=== PATIENT | female | born 1955 | race Caucasian/White ===

== ENCOUNTER → 2019-05-21 14:22 | Outpatient (BNVA) | payer BC, SELFPAY | PROVIDERS: Family Provider Nurse Practitioner; PCP Nurse Practitioner; Visit Provider Nurse Practitioner | DX: I10 Essential (primary) hypertension (principal); E78.2 Mixed hyperlipidemia; E11.9 Type 2 diabetes mellitus without complications | CPT/HCPCS: 80053; 80061; 81003; 83036 ==

== ENCOUNTER → 2019-07-09 16:19 | Outpatient (BNVA) | payer BC, SELFPAY | PROVIDERS: Family Provider Nurse Practitioner; PCP Nurse Practitioner; Visit Provider Nurse Practitioner | DX: R35.0 Frequency of micturition (principal); R82.998 Other abnormal findings in urine; N39.0 Urinary tract infection, site not specified | CPT/HCPCS: 81001; 87077; 87086; 87186 ==

== ENCOUNTER 2019-07-24 07:24 | Outpatient (CLI) | payer BC, SELFPAY ==
--- NOTE | 2019-07-24 08:00 | US_ITS ---
WS: [id number] Abdomen ultrasound, 07/24/2019 Clinical Data: Increase Bili level Comparison: None. Findings: The pancreas shows no cyst, pseudocyst or evidence of pancreatitis. The liver shows no cysts, masses or dilated intrahepatic ducts. The liver measures 10.[address] AP diameter. The gallbladder is absent. The common bile duct is 0.4 cm and no intraductal abnormalities are noted. The right kidney is 4.45 x 5.31 x 11.4 cm. No cysts, masses or hydronephrosis is seen. The left kidney is 5.18 x 5.52 x 10.8 cm. No cysts, masses or hydronephrosis is seen. The abdominal aorta is not dilated and the inferior vena cava has normal flow. No vascular abnormalit ies are seen. The spleen measures 9.7 cm and there are no intrasplenic masses are capsular abnormalities. US/US abdomen complete* [id number] Impression: 1. Absent gallbladder. 2. Negative abdomen ultrasound.
== END 2019-07-24 07:25 | disposition home or self-care (01) ==
LOC: US 07:27
PROVIDERS: Family Provider Nurse Practitioner; PCP Nurse Practitioner; Visit Provider Nurse Practitioner
DX: E80.6 Other disorders of bilirubin metabolism (principal)
CPT/HCPCS: 76700

== ENCOUNTER → 2019-07-30 14:57 | Outpatient (BNVA) | payer BC, SELFPAY | PROVIDERS: Family Provider Nurse Practitioner; PCP Nurse Practitioner; Visit Provider Nurse Practitioner | DX: R82.998 Other abnormal findings in urine (principal) | CPT/HCPCS: 81000 ==

== ENCOUNTER → 2019-12-05 16:22 | Outpatient (BNVA) | payer BC, SELFPAY | PROVIDERS: Family Provider Nurse Practitioner; PCP Nurse Practitioner; Visit Provider Nurse Practitioner | DX: E11.65 Type 2 diabetes mellitus with hyperglycemia (principal); E78.2 Mixed hyperlipidemia; R35.0 Frequency of micturition | CPT/HCPCS: 80053; 80061; 81003; 83036; 87077; 87086; 87186 ==

== ENCOUNTER → 2020-01-27 14:51 | Outpatient (BNVA) | payer BC, SELFPAY | PROVIDERS: Family Provider Nurse Practitioner; PCP Nurse Practitioner; Visit Provider Obstetrics & Gynecology | DX: Z12.4 Encounter for screening for malignant neoplasm of cervix (principal) | CPT/HCPCS: 88175 ==

== ENCOUNTER 2020-02-19 15:01 | Outpatient (CLI) | payer BC, SELFPAY ==
--- NOTE | 2020-02-19 15:06 | MM_ITS ---
WS: [id number] BILATERAL DIGITAL SCREENING MAMMOGRAPHY WITH CAD CLINICAL INFORMATION: SCREENING HISTORY: Screening mammogram. No current complaints. COMPARISON: TECHNIQUE: Bilateral CC and MLO views. FINDINGS: Scattered fibroglandular densities bilaterally. No suspicious focal mass, asymmetry, calcifications, or architectural distortion. No evidence of malignancy. MM/[place] [id number] IMPRESSION: BI-RADS: 1-Negative FOLLOW UP: 1 Year Follow-up Recommend return to annual screening mammography.
== END 2020-02-19 15:02 | disposition home or self-care (01) ==
LOC: RADSHAW 15:05
PROVIDERS: PCP Nurse Practitioner; Visit Provider Nurse Practitioner
DX: Z12.31 Encounter for screening mammogram for malignant neoplasm of breast (principal)
CPT/HCPCS: 77067

== ENCOUNTER → 2020-03-10 15:54 | Outpatient (BNVA) | payer BC, SELFPAY | PROVIDERS: PCP Nurse Practitioner; Visit Provider Nurse Practitioner | DX: E11.65 Type 2 diabetes mellitus with hyperglycemia (principal); E78.2 Mixed hyperlipidemia | CPT/HCPCS: 80053; 81000; 83036 ==

== ENCOUNTER → 2020-07-09 15:56 | Outpatient (BNVA) | payer BC, SELFPAY | PROVIDERS: PCP Nurse Practitioner; Visit Provider Nurse Practitioner | DX: E11.65 Type 2 diabetes mellitus with hyperglycemia (principal); E78.2 Mixed hyperlipidemia; I10 Essential (primary) hypertension | CPT/HCPCS: 80053; 80061; 81000; 82043; 83036; 84443 ==

== ENCOUNTER → 2020-11-05 14:30 | Outpatient (BNVA) | payer BC, SELFPAY | PROVIDERS: PCP Nurse Practitioner; Visit Provider Nurse Practitioner | DX: E11.65 Type 2 diabetes mellitus with hyperglycemia (principal); E66.9 Obesity, unspecified; E78.2 Mixed hyperlipidemia; I10 Essential (primary) hypertension | CPT/HCPCS: 80053; 81000; 83036 ==

== ENCOUNTER → 2021-02-09 14:30 | Outpatient (BNVA) | payer BC, SELFPAY | PROVIDERS: PCP Nurse Practitioner; Visit Provider Nurse Practitioner | DX: Z12.11 Encounter for screening for malignant neoplasm of colon (principal); E11.69 Type 2 diabetes mellitus with other specified complication; E66.9 Obesity, unspecified; E11.65 Type 2 diabetes mellitus with hyperglycemia; R39.11 Hesitancy of micturition; E78.2 Mixed hyperlipidemia; I10 Essential (primary) hypertension | CPT/HCPCS: 80053; 80061; 81000; 83036; 84443; 85025 ==

== ENCOUNTER 2021-03-26 13:15 | Outpatient (CLI) | payer BC, SELFPAY ==
--- NOTE | 2021-03-26 13:25 | MM_ITS ---
WS: [id number] BILATERAL DIGITAL SCREENING MAMMOGRAPHY WITH CAD CLINICAL INFORMATION: SCREENING HISTORY: Screening mammogram. No current complaints. COMPARISON: February 19, 2020 TECHNIQUE: Bilateral CC and MLO views. FINDINGS: Scattered fibroglandular densities bilaterally. No suspicious focal mass, asymmetry, calcifications, or architectural distortion. No evidence of malignancy. MM/[place] [id number] IMPRESSION: BI-RADS: 1-Negative FOLLOW UP: 1 Year Follow-up Recommend return to annual screening mammography.
== END 2021-03-26 13:16 | disposition home or self-care (01) ==
LOC: RADSHAW 13:17
PROVIDERS: PCP Nurse Practitioner; Visit Provider Nurse Practitioner
DX: Z12.31 Encounter for screening mammogram for malignant neoplasm of breast (principal)
CPT/HCPCS: 77067

== ENCOUNTER → 2021-05-25 16:15 | Outpatient (BNVA) | payer BC, SELFPAY | PROVIDERS: PCP Nurse Practitioner; Visit Provider Nurse Practitioner | DX: E11.65 Type 2 diabetes mellitus with hyperglycemia (principal); E78.2 Mixed hyperlipidemia | CPT/HCPCS: 80053; 81003; 83036; 87077; 87086; 87184 ==

== ENCOUNTER → 2021-08-25 10:29 | Outpatient (BNVA) | payer BC, SELFPAY | PROVIDERS: PCP Nurse Practitioner; Visit Provider Nurse Practitioner | DX: E11.69 Type 2 diabetes mellitus with other specified complication (principal); E66.9 Obesity, unspecified; I10 Essential (primary) hypertension; E11.65 Type 2 diabetes mellitus with hyperglycemia | CPT/HCPCS: 80053; 80061; 81000; 83036 ==

== ENCOUNTER → 2021-12-09 09:02 | Outpatient (BNVA) | payer BC, SELFPAY | PROVIDERS: PCP Nurse Practitioner; Visit Provider Nurse Practitioner | DX: E11.65 Type 2 diabetes mellitus with hyperglycemia (principal); Z78.0 Asymptomatic menopausal state; Z12.39 Encounter for other screening for malignant neoplasm of breast; E11.9 Type 2 diabetes mellitus without complications | CPT/HCPCS: 80053; 83036 ==

== ENCOUNTER → 2021-12-13 14:51 | Outpatient (BNVA) | payer BC, SELFPAY | PROVIDERS: PCP Nurse Practitioner; Visit Provider Nurse Practitioner | DX: E11.65 Type 2 diabetes mellitus with hyperglycemia (principal) | CPT/HCPCS: 81000 ==

== ENCOUNTER → 2022-03-14 15:22 | Outpatient (BNVA) | payer BC, SELFPAY | PROVIDERS: PCP Nurse Practitioner; Visit Provider Obstetrics & Gynecology | DX: Z01.419 Encounter for gynecological examination (general) (routine) without abnormal findings (principal); Z12.4 Encounter for screening for malignant neoplasm of cervix | CPT/HCPCS: 87624 ==

== ENCOUNTER → 2022-03-24 10:54 | Outpatient (BNVA) | payer BC, SELFPAY | PROVIDERS: PCP Nurse Practitioner; Visit Provider Nurse Practitioner | DX: E11.69 Type 2 diabetes mellitus with other specified complication (principal); E66.9 Obesity, unspecified; I10 Essential (primary) hypertension; E11.65 Type 2 diabetes mellitus with hyperglycemia | CPT/HCPCS: 80053; 80061; 81000; 83036 ==

== ENCOUNTER 2022-03-28 12:15 | Outpatient (CLI) | payer BC, SELFPAY ==
--- NOTE | 2022-03-28 13:00 | XR_ITS ---
WS: [id number] SCREENING DEXA SCAN [employer] CLINICAL INFORMATION: Z78.0 - Asymptomatic menopausal state COMPARISON: None. FINDINGS: The L1-L4 bone mineral density measures 0.950 g/cm2. This corresponds to a T score score of -1.9 and Z score of -1.0. Left femoral neck bone mineral density measures 0.697 g/cm2. This corresponds to a T score of -2.5 an d Z score of -1.8. Right femoral neck bone mineral density measures 0.699 g/cm2. This corresponds to a T score -2.4of an d Z score of -1.8. Mean femoral neck bone mineral density measures 0.698 g/cm2. This corresponds to a T score of -2.5 an d Z score of -1.8. XR/XR DEXA axial skeleton* [id number] IMPRESSION: Osteopenia lumbar spine. Osteoporosis femoral necks lower end of the range. Patient's FRAX calculated 10 year probability for major osteoporotic fracture i s 28.3 % and osteoporotic hip fracture is 9.6%.
== END 2022-03-28 12:16 | disposition home or self-care (01) ==
LOC: RAD 12:17
PROVIDERS: PCP Nurse Practitioner; Visit Provider Nurse Practitioner
DX: Z78.0 Asymptomatic menopausal state (principal); M85.80 Other specified disorders of bone density and structure, unspecified site; M81.0 Age-related osteoporosis without current pathological fracture
CPT/HCPCS: 77080

== ENCOUNTER 2022-03-28 12:16 | Outpatient (CLI) | payer BC, SELFPAY ==
--- NOTE | 2022-03-28 12:43 | MM_ITS ---
WS: [id number] BILATERAL 3D TOMOSYNTHESIS DIGITAL SCREENING MAMMOGRAPHY WITH CAD CLINICAL INFORMATION: Z12.39 - Encounter for other screening for malignant neop... HISTORY: Screening mammogram. No current complaints. COMPARISON: March 26, 2021 TECHNIQUE: Bilateral CC and MLO views. FINDINGS: Scattered fibroglandular densities bilaterally. No suspicious focal mass, asymmetry, calcifications, or architectural distortion. No evidence of malignancy. Eggshell calcifications LEFT breast. MM/[place] [id number] IMPRESSION: BI-RADS: 2-Benign FOLLOW UP: 1 Year Follow-up Recommend return to annual screening mammography.
== END 2022-03-28 12:17 | disposition home or self-care (01) ==
LOC: RAD 12:17
PROVIDERS: PCP Nurse Practitioner; Visit Provider Nurse Practitioner
DX: Z12.31 Encounter for screening mammogram for malignant neoplasm of breast (principal)
CPT/HCPCS: 77063; 77067

== ENCOUNTER → 2022-06-21 09:04 | Outpatient (BNVA) | payer MEDICARE, BC, SELFPAY | PROVIDERS: PCP Nurse Practitioner; Visit Provider Nurse Practitioner | DX: E11.69 Type 2 diabetes mellitus with other specified complication (principal); E66.9 Obesity, unspecified; E78.2 Mixed hyperlipidemia; E11.65 Type 2 diabetes mellitus with hyperglycemia; E11.9 Type 2 diabetes mellitus without complications; M79.672 Pain in left foot; Z78.0 Asymptomatic menopausal state | CPT/HCPCS: 73630; 80053; 81000; 83036 ==

== ENCOUNTER → 2022-10-11 08:07 | Outpatient (BNVA) | payer MEDICARE, BC, SELFPAY | PROVIDERS: PCP Nurse Practitioner; Visit Provider Nurse Practitioner | DX: E11.69 Type 2 diabetes mellitus with other specified complication (principal); E66.9 Obesity, unspecified; I10 Essential (primary) hypertension; E11.65 Type 2 diabetes mellitus with hyperglycemia; Z78.0 Asymptomatic menopausal state; E78.2 Mixed hyperlipidemia | CPT/HCPCS: 80053; 80061; 81000; 82043; 83036 ==

== ENCOUNTER → 2023-01-03 08:22 | Outpatient (BNVA) | payer MEDICARE, BC, SELFPAY | PROVIDERS: PCP Nurse Practitioner; Visit Provider Nurse Practitioner | DX: E11.69 Type 2 diabetes mellitus with other specified complication (principal); E66.9 Obesity, unspecified; E11.65 Type 2 diabetes mellitus with hyperglycemia; Z78.0 Asymptomatic menopausal state | CPT/HCPCS: 80053; 81000; 83036 ==

== ENCOUNTER → 2023-03-28 08:20 | Outpatient (BNVA) | payer MEDICARE, BC, SELFPAY | PROVIDERS: PCP Nurse Practitioner; Visit Provider Nurse Practitioner | DX: E11.65 Type 2 diabetes mellitus with hyperglycemia; Z78.0 Asymptomatic menopausal state; N39.0 Urinary tract infection, site not specified | CPT/HCPCS: 80053; 80061; 81000; 83036; 84443; 87077; 87086; 87184 ==

== ENCOUNTER 2023-03-31 13:21 | Outpatient (CLI) | payer MEDICARE, BC, SELFPAY ==
--- NOTE | 2023-03-31 13:36 | MM_ITS ---
WS: [id number] BILATERAL 3D TOMOSYNTHESIS DIGITAL SCREENING MAMMOGRAPHY WITH CAD CLINICAL INFORMATION: SCREENING HISTORY: Screening mammogram. No current complaints. COMPARISON: 2021 TECHNIQUE: Bilateral CC and MLO views. FINDINGS: Scattered fibroglandular densities bilaterally. No suspicious focal mass, asymmetry, calcifications, or architectural distortion. No evidence of malignancy. Lucent centered calcifications. IMPRESSION: MM/[place] [id number] BI-RADS: 2-Benign FOLLOW UP: 1 Year Follow-up Recommend return to annual screening mammography.
== END 2023-03-31 13:22 | disposition home or self-care (01) ==
LOC: RAD 13:21
PROVIDERS: PCP Nurse Practitioner; Visit Provider Nurse Practitioner
DX: Z12.31 Encounter for screening mammogram for malignant neoplasm of breast (principal)
CPT/HCPCS: 77063; 77067

== ENCOUNTER → 2023-04-11 11:50 | Outpatient (BNVA) | payer MEDICARE, BC, SELFPAY | PROVIDERS: PCP Nurse Practitioner; Visit Provider Nurse Practitioner | DX: N39.0 Urinary tract infection, site not specified (principal) | CPT/HCPCS: 81000 ==

== ENCOUNTER → 2023-06-28 09:11 | Outpatient (BNVA) | payer MEDICARE, BC, SELFPAY | PROVIDERS: PCP Nurse Practitioner; Visit Provider Nurse Practitioner | DX: E11.65 Type 2 diabetes mellitus with hyperglycemia (principal); Z78.0 Asymptomatic menopausal state; N39.0 Urinary tract infection, site not specified; Z79.899 Other long term (current) drug therapy | CPT/HCPCS: 80053; 81000; 83036; 87077; 87086; 87184 ==

== ENCOUNTER → 2023-09-14 11:23 | Outpatient (BNVA) | payer MEDICARE, BC, SELFPAY | PROVIDERS: PCP Nurse Practitioner; Visit Provider Nurse Practitioner | DX: E11.69 Type 2 diabetes mellitus with other specified complication (principal); E66.9 Obesity, unspecified; E11.65 Type 2 diabetes mellitus with hyperglycemia; Z78.0 Asymptomatic menopausal state | CPT/HCPCS: 80053; 81000; 83036 ==

== ENCOUNTER → 2023-11-30 11:16 | Outpatient (BNVA) | payer MEDICARE, BC, SELFPAY | PROVIDERS: PCP Nurse Practitioner; Visit Provider Nurse Practitioner | DX: E11.69 Type 2 diabetes mellitus with other specified complication (principal); E66.9 Obesity, unspecified; E11.65 Type 2 diabetes mellitus with hyperglycemia; I10 Essential (primary) hypertension; Z78.0 Asymptomatic menopausal state | CPT/HCPCS: 80053; 80061; 81000; 83036 ==

== ENCOUNTER 2023-12-19 07:56 | Outpatient (CLI) | payer MEDICARE, SELFPAY ==
--- NOTE | 2023-12-19 08:30 | US_ITS ---
WS: [id number] Complete ABDOMINAL ULTRASOUND HISTORY: R17 - Unspecified jaundice COMPARISON: 07/24/2019 Liver: 16.0 cm in length. Normal size liver. Mild hepatomegaly. Liver is poorly visualized due to bod y habitus. No mass. Portal Vein: Normal hepatopetal flow with monophasic waveform. Gallbladder: Prior cholecystectomy. CBD: 0.5 cm Pancreas: Not visualized. Right kidney: 8.7 cm x 4.1 x 3.9 cm. Cortex:1.0 cm. Low normal size kidney. The kidney is poorly visualized due to body habitus. No obstruction identifie d. Left kidney: 9.3 cm x 5.1 cm x 5.0 cm. Cortex: 1.3 cm. Poorly visualized due to body habitus. No obstruction. Normal size. Spleen: 10.3 cm. Normal size and echogenicity. Aorta and IVC: Unremarkable abdominal aorta and IVC. US/US abdomen complete* [id number] Impression: 1. Limited evaluation of the abdominal structures due to patient's body habitu s. 2. Prior cholecystectomy. 3. Low normal size kidneys with no obstruction. 4. Mild hepatomegaly. Mild hepatic steatosis.
== END 2023-12-19 07:57 | disposition home or self-care (01) ==
LOC: RAD 07:57
PROVIDERS: PCP Nurse Practitioner; Visit Provider Nurse Practitioner
DX: R17 Unspecified jaundice (principal); Z90.49 Acquired absence of other specified parts of digestive tract
CPT/HCPCS: 76700

== ENCOUNTER → 2024-02-15 15:35 | Outpatient (BNVA) | payer MEDICARE, SELFPAY | PROVIDERS: PCP Nurse Practitioner; Visit Provider Nurse Practitioner | DX: E11.69 Type 2 diabetes mellitus with other specified complication (principal); E66.9 Obesity, unspecified | CPT/HCPCS: 80053; 81000; 83036 ==

== ENCOUNTER → 2024-03-07 14:34 | Outpatient (BNVA) | payer MEDICARE, SELFPAY | PROVIDERS: PCP Nurse Practitioner; Visit Provider Clinical Nurse Specialist Adult Health | DX: N39.0 Urinary tract infection, site not specified (principal) | CPT/HCPCS: 81000; 87086 ==

== ENCOUNTER 2024-04-03 07:42 | Outpatient (CLI) | payer MEDICARE, BC, SELFPAY ==
--- NOTE | 2024-04-03 07:47 | MM_ITS ---
WS: [id number] BILATERAL SCREENING DIGITAL TOMOSYNTHESIS MAMMOGRAM WITH CAD HISTORY: SCREENING COMPARISON: 03/31/2023, 03/28/2022 and 03/26/2021 Bilateral CC and MLO views with tomosynthesis and synthetic mammography submitted. Computer aided det ection analyzed. Breast composition: There are scattered areas of fibroglandular density. No suspicious masses, microc alcifications or architectural distortion. MM/MM scr BI tomosynthesis [id number] IMPRESSION: BI-RADS: 1 - Negative. FOLLOW UP: 1 Year Follow-up
== END 2024-04-03 07:43 | disposition home or self-care (01) ==
PROVIDERS: PCP Nurse Practitioner; Visit Provider Nurse Practitioner
DX: Z12.31 Encounter for screening mammogram for malignant neoplasm of breast (principal); R92.323 Mammographic fibroglandular density, bilateral breasts
CPT/HCPCS: 77063; 77067

== ENCOUNTER → 2024-05-01 15:28 | Outpatient (BNVA) | payer MEDICARE, BC, SELFPAY | PROVIDERS: PCP Nurse Practitioner; Visit Provider Nurse Practitioner | DX: E11.69 Type 2 diabetes mellitus with other specified complication (principal); E66.9 Obesity, unspecified; E11.65 Type 2 diabetes mellitus with hyperglycemia; Z78.0 Asymptomatic menopausal state; E78.2 Mixed hyperlipidemia | CPT/HCPCS: 80053; 81000; 83036 ==

== ENCOUNTER → 2024-07-17 15:20 | Outpatient (BNVA) | payer MEDICARE, BC, SELFPAY | PROVIDERS: PCP Nurse Practitioner; Visit Provider Nurse Practitioner | DX: E11.9 Type 2 diabetes mellitus without complications (principal); E55.9 Vitamin D deficiency, unspecified | CPT/HCPCS: 80053; 80061; 81000; 82306; 82607; 83036 ==

== ENCOUNTER → 2024-08-13 14:51 | Outpatient (BNVA) | payer MEDICARE, BC, SELFPAY | PROVIDERS: PCP Nurse Practitioner; Visit Provider Nurse Practitioner | DX: E11.69 Type 2 diabetes mellitus with other specified complication (principal); E66.9 Obesity, unspecified; E53.8 Deficiency of other specified B group vitamins; N39.0 Urinary tract infection, site not specified | CPT/HCPCS: 81003; 87077; 87086; 87184 ==

== ENCOUNTER → 2024-10-16 15:29 | Outpatient (BNVA) | payer MEDICARE, BC, SELFPAY | PROVIDERS: PCP Nurse Practitioner; Visit Provider Nurse Practitioner | DX: I10 Essential (primary) hypertension (principal); E11.65 Type 2 diabetes mellitus with hyperglycemia; E55.9 Vitamin D deficiency, unspecified | CPT/HCPCS: 80053; 82306; 82607; 83036 ==

== ENCOUNTER → 2025-01-08 14:13 | Outpatient (BNVA) | payer MEDICARE, BC, SELFPAY | PROVIDERS: PCP Nurse Practitioner; Visit Provider Nurse Practitioner | DX: I10 Essential (primary) hypertension (principal); E11.69 Type 2 diabetes mellitus with other specified complication; E66.9 Obesity, unspecified; E11.65 Type 2 diabetes mellitus with hyperglycemia | CPT/HCPCS: 80053; 81000; 83036 ==

== ENCOUNTER → 2025-04-02 14:54 | Outpatient (BNVA) | payer MEDICARE, BC, SELFPAY | PROVIDERS: PCP Nurse Practitioner; Visit Provider Nurse Practitioner | DX: E55.9 Vitamin D deficiency, unspecified (principal); E53.8 Deficiency of other specified B group vitamins; I10 Essential (primary) hypertension; E11.65 Type 2 diabetes mellitus with hyperglycemia | CPT/HCPCS: 80053; 80061; 82043; 82306; 82607; 83036; 84443 ==

== ENCOUNTER 2025-04-07 14:38 | Outpatient (CLI) | payer MEDICARE, BC, SELFPAY ==
--- NOTE | 2025-04-07 14:43 | MM_ITS ---
WS: [id number] BILATERAL 3D TOMOSYNTHESIS DIGITAL SCREENING MAMMOGRAPHY WITH CAD CLINICAL INFORMATION: SCREENING HISTORY: Screening mammogram. No current complaints. COMPARISON: 2023 TECHNIQUE: Bilateral CC and MLO views. FINDINGS: Scattered fibroglandular densities bilaterally. No suspicious focal mass, asymmetry, calcifications, or architectural distortion. No evidence of malignancy. MM/MM scr [place] tomosynthesis [id number] IMPRESSION: DENSITY: There are scattered areas of fibroglandular density. BI-RADS: 1 - Negative. FOLLOW UP: 1 Year Follow-up Recommend return to annual screening mammography.
== END 2025-04-07 14:39 | disposition home or self-care (01) ==
LOC: RAD 14:39
PROVIDERS: PCP Nurse Practitioner; Visit Provider Nurse Practitioner
DX: Z12.31 Encounter for screening mammogram for malignant neoplasm of breast (principal); R92.323 Mammographic fibroglandular density, bilateral breasts
CPT/HCPCS: 77063; 77067